=== PATIENT | male | born 1960 | race African-American/Black ===

== ENCOUNTER 2021-03-10 20:11 | Emergency (ER) | payer MEDICAID ==
[~2021-03-10] VITALS: Ht 167.6 cm; Wt 55.0 kg
[2021-03-10 20:12] VITALS: BP 114/72
[2021-03-10] MEDS ORDERED: ACETAMINOPHEN 325MG TABLET PO ONE (22:45)
== END 2021-03-10 23:01 | disposition left against medical advice (07) ==
LOC: ER 20:22
DX: M54.5 Low back pain (principal); J45.909 Unspecified asthma, uncomplicated; I49.9 Cardiac arrhythmia, unspecified; V49.9XXA Car occupant (driver) (passenger) injured in unspecified traffic accident, initial encounter; Y93.89 Activity, other specified; Y92.89 Other specified places as the place of occurrence of the external cause; Y99.8 Other external cause status
CPT/HCPCS: 93005; 99283